=== PATIENT | female | born 1990 | race African-American/Black ===

== ENCOUNTER 2018-11-15 18:43 | Emergency (ER) | payer SELFPAY ==
[2018-11-15 19:28] LABS: Bilirubin Negative (Negative); Blood, Urine Negative (Negative); Clarity CLEAR (Clear); Glucose, Urine (Dipstick) Negative (Negative); Leukocyte Small (Negative); Nitrite Negative (Negative); Protein, Urine (Dipstick) 30 mg/dL (Neg-Trace); Specific Gravity, Urine 1.028 (1.002-1.036); pH, Urine 6.5 (5.0-9.0)
[2018-11-15 19:33] LABS: Bacteria/HPF None Seen HPF (None Seen); Hyaline Casts/LPF 7-10 HYALINE CAST LPF (0-3 Hyaline); Pathc Cast-AUWi Flag 2.04 (0-2.49); Squamous Epithelial 0-3 HPF (0-3)
[2018-11-15 19:34] LABS: Pregnancy Test - Urine (BHCG) Negative (Negative); Pregu Control Background? CLEAR/WHITE (CLR/WHITE); Pregu Control Bar Appear? YES (CONTROL BAR); Specific Gravity 1.028 (1.002-1.036)
[2018-11-15] MEDS ORDERED: Azithromycin 250 MG TAB ONE ×2 (21:53→21:57)
[2018-11-15] MEDS ORDERED: cefTRIAXone\\ROCEPHIN 250 MG VIAL ONE (21:56)
[2018-11-15] MEDS ORDERED: Lidocaine 1% PF 5 ML VIAL ONE (21:59)
[2018-11-18 00:35] LABS: Chlam.trachomatis by PCR,Urine Not Detected (NotDetected)
== END 2018-11-15 22:43 | disposition home or self-care (01) ==
LOC: ERS 18:43
DX: N89.8 Other specified noninflammatory disorders of vagina (principal)
CPT/HCPCS: 81003; 81015; 81025; 87491; 87591; 99283; J0696; J2001

== ENCOUNTER 2019-01-19 09:35 | Emergency (ER) | payer SELFPAY ==
[2019-01-19 10:48] LABS: Pregnancy Test - Urine (BHCG) Negative (Negative); Pregu Control Background? CLEAR/WHITE (CLR/WHITE); Pregu Control Bar Appear? YES (CONTROL BAR); Specific Gravity 1.029 (1.002-1.036)
[2019-01-19 10:50] LABS: Bacteria/HPF 1+ HPF (None Seen); Bilirubin Negative (Negative); Blood, Urine Negative (Negative); Clarity Turbid (Clear); Glucose, Urine (Dipstick) Normal (Negative); Leukocyte 250 Leu/uL (Negative); Nitrite Negative (Negative); Protein, Urine (Dipstick) 50 mg/dL (Neg-Trace)
== END 2019-01-19 12:03 | disposition home or self-care (01) ==
LOC: ERS 09:35
DX: N39.0 Urinary tract infection, site not specified (principal)
CPT/HCPCS: 81003; 81015; 81025; 87077; 87086; 87186; 99283

== ENCOUNTER 2021-10-18 17:39 | Emergency (ER) | payer OTHER, SELFPAY ==
[2021-10-18 18:25] LABS: Bilirubin Negative (Negative); Blood, Urine Negative (Negative); Clarity Clear (Clear); Glucose, Urine (Dipstick) Normal (Negative); Ketone, Urine Negative (Negative); Leukocyte Negative Leu/uL (Negative); Nitrite Negative (Negative); Protein, Urine (Dipstick) Negative (Neg-Trace); Specific Gravity, Urine 1.028 (1.002-1.036); Urobilinogen Normal mg/dL (Less than 2); pH, Urine 5.5 (5.0-9.0)
[2021-10-18 18:27] LABS: Pregnancy Test - Urine (BHCG) Negative (Negative); Pregu Control Background? CLEAR/WHITE (CLR/WHITE); Pregu Control Bar Appear? YES (CONTROL BAR); Specific Gravity 1.028 (1.002-1.036)
[2021-10-19 17:43] LABS: Chlamydia by PCR Not Detected (NotDetected); GC by PCR Not Detected (NotDetected)
== END 2021-10-18 18:41 | disposition home or self-care (01) ==
LOC: ERS 17:39
DX: B37.3 Candidiasis of vulva and vagina (principal)
CPT/HCPCS: 81003; 81025; 87480; 87491; 87510; 87591; 87660; 99283